=== PATIENT | female | born 1985 | race Two or more races ===

== ENCOUNTER → 2025-07-05 | Outpatient (CLI) | payer MEDICAID, SELFPAY ==
--- NOTE | 2025-07-05 10:45 | XR_ITS ---
Examination: Venous duplex lower extremity sonogram, bilateral. Date and time of exam: July 05, 2025 1018 hours INDICATIONS: Bilateral lower legs falling and pain beginning 3 months ago Technique: Multiple sonographic images of the deep venous system have been obtained. B-mode/2-D grayscale imaging of vascular structures and Doppler spectral analysis (waveforms) and color performed Both legs are examined. Findings: Deep venous systems do not demonstrate abnormal echogenicity. All visualized deep veins exhibit compressibility. All visualized deep veins exhibit augmentation. Impression: Negative for deep vein thrombosis
== END | disposition home or self-care (01) ==
LOC: CDIM 09:52
PROVIDERS: Referring Provider Registered Nurse Community Health; Visit Provider Registered Nurse Community Health
DX: R60.0 Localized edema (principal); M79.606 Pain in leg, unspecified
CPT/HCPCS: 93970

== ENCOUNTER → 2025-08-19 | Outpatient (CLI) | payer MEDICAID, SELFPAY ==
--- NOTE | 2025-08-19 15:40 | XR_ITS ---
Examination: Retroperitoneal ultrasound, complete Technique: Multiple high resolution grayscale images of the retroperitoneum obtained, including kidneys and bladder. Exam date and time: 08/19/2025 at 3:46 p.m. Indication: Right flank pain for 5 months Comparison: CT abdomen pelvis 06/30/2018 and limited abdominal ultrasound 06/29/2018. FINDINGS: The right kidney measures 11.2 x 5.4 x 5.0 cm in size with cortical thickness of 2.1 cm. The left kidney measures 10.5 x 5.2 x 4.7 cm in size with cortical thickness of 1.8 cm. Mildly lobulated bilateral renal cortical contour is likely developmental correlates with prior CT. Bilateral renal cortical echotexture is normal. No evidence for solid renal mass, calculi, hydronephrosis, or perinephric fluid collection on either side. The urinary bladder is normal in appearance without significant focal or diffuse mural thickening. No bladder calculi are seen. Color Doppler demonstrates intact bilateral ureteral jets. Prevoid bladder volume is 446 mL and post void bladder volume is 13 mL. IMPRESSION: Normal sonographic appearance of the kidneys. No evidence for calculi, hydronephrosis or solid masses. Small post void residual volume of 13 mL. Otherwise, normal appearing urinary bladder.
--- NOTE | 2025-08-19 15:45 | XR_ITS ---
Examination: Arterial duplex lower extremity study. Date and time of exam: August 19, 2025, 1559 hours INDICATIONS: Bilateral leg pain beginning 3 months ago. Findings: Duplex sonographic imaging of the lower extremity arteries using B-mode/Jang scale imaging and Doppler spectral analysis and color flow. Ankle brachial indices have been recorded. Right common femoral artery demonstrates triphasic flow. Right superficial femoral artery demonstrates triphasic flow. Right popliteal artery demonstrates triphasic flow. Right posterior tibial artery demonstrated triphasic flow. Right ankle/brachial index is 1.1. Left common femoral artery demonstrates triphasic flow. Left superficial femoral artery demonstrates triphasic flow. Left popliteal artery demonstrates triphasic flow. Left posterior tibial artery demonstrated triphasic flow. Left ankle/brachial index is 1.1. Impression: Negative study
== END | disposition home or self-care (01) ==
LOC: CDIM 15:24
PROVIDERS: PCP Registered Nurse Community Health; Referring Provider Registered Nurse Community Health; Visit Provider Registered Nurse Community Health
DX: R39.198 Other difficulties with micturition (principal); M79.606 Pain in leg, unspecified
CPT/HCPCS: 76770; 93925

== ENCOUNTER 2025-09-10 08:01 | Emergency (ER) | payer MEDICAID, SELFPAY ==
[2025-09-10 08:13] VITALS: BP 178/140; BP 182/133; PULSE 88; RESP 18; TEMP 37; O2SAT 97; BMI 41.5
--- NOTE | 2025-09-10 08:19 | XR_ITS ---
Examination: CT brain head without contrast. 2-D sagittal coronal reconstructions Date and time of exam: September 10, 2025, 0836 hours INDICATIONS: Patient fell yesterday with injury to the head, head pain CTDI: vol (mGy): 51.1 DLP: (mGycm): 1010 Technique: Multiple CT axial sections of the brain have been obtained, 5 mm slice thickness. Contrast has not been administered. 2-D sagittal, coronal reconstructions have been obtained Low dose protocols were performed. One or more of the following dose reduction techniques were used; automated exposure control, adjustment of the mA and/or KV according to patient size, use of iterative reconstruction technique. Findings: No significant ventricular enlargement. Intra-axial or extra-axial hemorrhage density is not seen. No mass effect or midline shift Basal cisterns are not remarkable. Fourth ventricle is midline. Cranial vault intact. Impression: Negative for acute hemorrhage, mass effect or midline shift
[2025-09-10] MEDS: SODIUM CHLORIDE 0.9% 1000 ML 1,000 ML 999 ML IV (09:01)
[2025-09-10] MEDS: KETOROLAC INJ 30 MG/ML VIAL IVP (09:02)
--- NOTE | 2025-09-10 10:00 | PC.NURSE ---
Patient had fall early this am. Patient not sure of the time, states she hit her head, no loc, not taking any blood thinners.
[2025-09-10 10:05] VITALS: BP 123/84; PULSE 75; RESP 18; TEMP 37; O2SAT 98
--- NOTE | 2025-09-10 10:12 | EDNOTE_ITS ---
ED Headache RME/HPI General Chief Complaint: Headache Stated Complaint: ARIAS since yesterday Time Seen by Provider: 09/10/25 08:15 Arrival date/time: 09/10/25 08:01 Limitations: no limitations RME / HPI Complaint: headache Onset (ago): hour(s) Onset description: sudden Location: diffuse Severity: moderate Quality: throbbing Relieving factors: nothing Context: recent head injury and other (+ETOH) Associated symptoms: nausea and vomiting Treatments prior to arrival: ibuprofen RME / HPI Narrative: 39-year-old female states was drinking last night did not think she drink that much but was very dizzy and not steady on her feet causing her to trip and fall striking her head. Took an ibuprofen but then continued to vomit and started having a worse headache than before. Now feels dizzy headache and with vomiting. No other injuries reported. Related Data Previous Rx's ?Medication ?Instructions ?Recorded hydrocodone 5 mg-acetaminophen 325 1 tab PO [id number] N pain #14 tabs 06/30/18 mg tablet ([place]) ibuprofen 600 mg tablet (IBU) 600 mg PO TID PRN pain # 30 tabs 06/30/18 ondansetron 4 mg disintegrating 4 mg PO Q8H PRN nausea and 04/15/22 tablet vomiting #10 tabs Allergies Allergy/AdvReac Type Severity Reaction Status Date / Time No Known Allergies Allergy Verified 04/15/22 12:29 Review of Systems Review of Systems Systems Reviewed: All systems reviewed, normal except as documented Constitutional Constitutional: Denies fever(s) Neurologic Neurologic: Reports as per HPI ED Exam General Limitations: Present no limitations General appearance: Present alert and in no apparent distress Head Head exam: Present atraumatic Eye Eye exam: Present normal appearance, PERRL and EOMI ENT ENT exam: Present normal exam, normal oropharynx and mucous membranes moist Neck Neck exam: Present normal inspection, full ROM and trachea midline Chest Chest inspection: Present normal inspection and symmetric chest wall rise Respiratory Respiratory exam: Present normal lung sounds bilaterally Cardiovascular Cardiovascular exam: Present regular rate, normal rhythm and normal heart sounds Abdominal Exam Abdominal exam: Present soft and normal bowel sounds Extremities Exam Extremities exam: Present normal inspection and full ROM Back Exam Back exam: Present normal inspection and full ROM Neurological Exam Neurological exam: Present alert, oriented X3 and CN II-XII intact Psychiatric Psychiatric exam: Present normal affect and normal mood Skin Skin exam: Present warm, dry, intact and normal color Course Quality Measures none Orders Category Date Time Status CT head/brain wo con Stat Exams 09/10/25 08:19 Completed ALPRazoLAM [Xanax] Med 09/10/25 08:19 Discontinued 1 mg PO X1 ONE Ketorolac Inj [Toradol Inj] Med 09/10/25 08:19 Discontinued 30 mg IM X1 ONE Ketorolac Inj [Toradol Inj] Med 09/10/25 08:29 Discontinued 30 mg IVP X1 ONE Sodium Chloride 0.9% 1000 ml [Ns] 1,000 ml Med 09/10/25 08:19 Discontinued IV 999 mls/hr Vital Signs Vital signs: Vital Signs Temperature 98.6 F 09/10/25 08:13 Pulse Rate 88 09/10/25 08:13 Respiratory Rate 18 09/10/25 08:13 Blood Pressure 178/140 H 09/10/25 08:13 Pulse Oximetry (%) 97 09/10/25 08:13 Oxygen Delivery Method Room Air 09/10/25 08:13 Headache Patient data External records reviewed:: [facility] previous records Clinical information provided by:: patient Social determinants that could affect healthcare access:: alcohol use Patient has the following chronic illnesses:: none How is presenting disease/condition affected by chronic disease/condition?: no chronic disease Evaluation data The following diagnostics were reviewed and interpreted by me:: radiology exam(s) Lab and/or radiology exams considered but not ordered:: labs considered but will not change course of treatment today Interpretation Summary: negative ct of head Medications / Prescriptions Medications or Prescriptions considered but not ordered:: benzos for home Medication administrations:: Medication Administration History Discontinued Medications Alprazolam (Alprazolam 0.25 Mg Tablet) 1 mg PO X1 ONE Stop: 09/10/25 08:20 Last Admin: 09/10/25 09:01 Dose: 1 mg Documented By: ZACH Sodium Chloride (Ns) 1,000 mls @ 999 mls/hr IV .Q1H1M ONE Stop: 09/10/25 09:19 Last Infusion: 09/10/25 10:12 Dose: Infused Documented By: Admin: 09/10/25 09:01 Dose: 999 mls/hr Documented By: ZACH Ketorolac Tromethamine (Ketorolac Inj 30 Mg/Ml Vial) 30 mg IM X1 ONE Stop: 09/10/25 08:20 Last Admin: 09/10/25 08:29 Dose: Not Given Documented By: ZACH Non-Admin Reason: Duplicate Medication on eMAR Ketorolac Tromethamine (Ketorolac Inj 30 Mg/Ml Vial) 30 mg IVP X1 ONE Stop: 09/10/25 08:30 Last Admin: 09/10/25 09:02 Dose: 30 mg Documented By: ZACH see above Consultations Consultation(s) initiated? (list below): No Diagnosis Differential diagnosis headache: migraine, tension headache, subarachnoid hemorrhage, headache, sinusitis, postconcussion syndrome and other (dehydration from etoh ) Most likely diagnosis given after review of the tests above:: head trauma ETOH abuse Admission Indicated Admission indicated?: not indicated Admission Request Was there a request for admission?: No Disposition Plan Disposition Plan: Discharge Discharge Attestation Discharge Attestation: The patient and all family members were given an opportunity to ask questions and understood the discharge instructions. Discharge instructions specifically effects, indications for sooner follow up or return to the emergency department, and the expected course of current diagnosis. Patient condition: Stable Discharge Plan Plan Patient Disposition: HOME (Self Care) Discharge Disposition comment: f/u with pcp in 2-3days Prescriptions/Referrals Prescriptions/Med Rec: No Action hydrocodone-acetaminophen [[place]] 5-325 mg tablet 1 tab PO [id number] MDD 3 PRN (Reason: pain) Qty: 14 0RF ibuprofen [IBU] 600 mg tablet 600 mg PO TID PRN (Reason: pain) Qty: 30 0RF ondansetron 4 mg tablet,disintegrating 4 mg PO Q8H PRN (Reason: nausea and vomiting) Qty: 10 0RF Referrals: Jessie Lozada, [facility] [Primary Care Provider] - In 1 week Problem List Clinical Impression: Head ache, Head injury due to trauma, ETOH abuse Patient/Caregiver Discharge Instructions Education Materials: ED Head Injury (Adult), ED Alcohol Abuse Print Language: [place] Stand Alone Forms: [employer] Info., Patient Portal Info Letter PA/ADJUNCT PHYSICAL EDUCATION INSTRUCTOR Supervising Physician PA/ADJUNCT PHYSICAL EDUCATION INSTRUCTOR Supervising Physician: Dr. Walker
== END 2025-09-10 10:50 | disposition home or self-care (01) ==
PROVIDERS: Emergency Provider Emergency Medicine; PCP Nurse Practitioner Family
DX: S09.90XA Unspecified injury of head, initial encounter (principal); F10.10 Alcohol abuse, uncomplicated; W19.XXXA Unspecified fall, initial encounter
CPT/HCPCS: 70450; 96361; 96374; 99283; J1885; J7030; A9270

== ENCOUNTER 2025-09-25 11:02 | Emergency (ER) | payer MEDICAID, SELFPAY ==
[2025-09-25 11:03] VITALS: BMI 41.1
[2025-09-25 11:29] VITALS: BP 128/92; PULSE 83; RESP 17; TEMP 37.1; O2SAT 99
--- NOTE | 2025-09-25 12:02 | EDNOTE_ITS ---
<Statement entered by Jocelyn Mercado MD - 09/25/25 17:50> As co-signing physician, I was present and available for consult prn. I concur with the plan and care as documented by the midlevel provider. ED Abdominal Pain RME/HPI General Chief Complaint: Abdominal Pain Stated complaint: RUQ ABD PAIN X4 DAYS Time seen by provider: 09/25/25 11:54 Arrival date/time: 09/25/25 11:02 RME / HPI RME / HPI narrative: 39-year-old female with a past medical history of cholecystectomy 6 years ago presents to the ER complaining right flank pain for the past 4 days associate with nausea. Denies vomiting, diarrhea, fever, shortness of breath urinary symptoms. Patient states that she is currently on her menstrual period. Patient was sent here from the clinic to exclude a kidney stone. Related Data Previous Rx's ?Medication ?Instructions ?Recorded hydrocodone 5 mg-acetaminophen 325 1 tab PO [id number] [place] N pain #14 tabs 06/30/18 mg tablet ([place]) ibuprofen 600 mg tablet (IBU) 600 mg PO TID PRN pain # 30 tabs 06/30/18 ondansetron 4 mg disintegrating 4 mg PO Q8H PRN nausea and 04/15/22 tablet vomiting #10 tabs Allergies Allergy/AdvReac Type Severity Reaction Status Date / Time No Known Allergies Allergy Verified 09/25/25 11:05 Course Quality Measures none Orders Category Date Time Status NPO NOW Care 09/25/25 12:03 Active Diet NPO (NOW) Diet 09/25/25 12:[address] abdomen pelvis wo con Stat Exams 09/25/25 12:03 Completed CBC Stat Lab 09/25/25 12:14 Completed CMP [Comprehensive Metabolic Panel] Stat Lab 09/25/25 12:14 Completed HCG,Qualitative Serum Stat Lab 09/25/25 12:14 Completed Lipase Stat Lab 09/25/25 12:14 Completed Urinalysis Stat Lab 09/25/25 14:50 Completed Urine Culture Stat Lab 09/25/25 14:50 Received Ketorolac Inj [Toradol Inj] Med 09/25/25 12:03 Discontinued 30 mg IM X1 ONE Ondansetron Odt [Zofran Odt] Med 09/25/25 12:03 Discontinued 4 mg PO X1 ONE Vital Signs Vital signs: Vital Signs Temperature 98.7 F 09/25/25 11:29 Pulse Rate 83 09/25/25 11:29 Respiratory Rate 17 09/25/25 11:29 Blood Pressure 128/92 H 09/25/25 11:29 Pulse Oximetry (%) 99 09/25/25 11:29 Oxygen Delivery Method Room Air 09/25/25 11:29 Abdominal Pain MDM MDM Narrative MDM Narrative:: MDM: The patient presents with abdominal pain without definite explanation found on evaluation today. However, there are no signs of peritonitis or other life- threatening or serious etiology. I considered admission; however, given negative work up and imaging, admission is not indicated. Serial abdominal exams were benign throughout the ED stay, and the patient tolerated oral intake without difficulty. The inherent uncertainty with undifferentiated abdominal pain was emphasized, and strict return precautions were provided. The patient has been instructed that this presentation could represent an early acute abdominal process. The plan is for mandatory re-evaluation within 24 hours and immediate return for worsening, persistence, or change in symptoms. The patient may follow up with their primary care provider or return to the ED as appropriate. The patient appears stable for discharge at this time. Patient data External records reviewed:: [facility] previous records Clinical information provided by:: patient Social determinants that could affect healthcare access:: none Patient has the following chronic illnesses:: As noted How is presenting disease/condition affected by chronic disease/condition?: no chronic disease Evaluation data The following diagnostics were reviewed and interpreted by me:: lab results and radiology exam(s) Lab and/or radiology exams considered but not ordered:: Additional Labs and radiology considered, but not ordered as they were not clinically indicated at this time. Interpretation Summary: CBC without severe leukocytosis, anemia, or thrombocytopenia CMP without severe hyperbilirubinemia, transaminitis, acute renal failure or severe electrolyte derangement Lipase without severe elevation CT notes hepatosplenomegaly without acute intra-abdominal or pelvic abnormality UA without infection however there is blood bilirubin and RBCs without bacteria or nitrates Medications / Prescriptions Medications or Prescriptions considered but not ordered:: I ordered medications based on the patient?s clinical needs and assessment, as documented in the chart. For medications not prescribed, they were not indicated for the patient's current condition, and I determined they were unnecessary at this time to avoid potential risks or complications. Medication administrations:: Medication Administration History Discontinued Medications Ketorolac Tromethamine (Ketorolac Inj 30 Mg/Ml Vial) 30 mg IM X1 ONE Stop: 09/25/25 12:04 Last Admin: 09/25/25 12:27 Dose: 30 mg Documented By: Ondansetron HCl (Ondansetron Odt 4 Mg Tabrap) 4 mg PO X1 ONE; Protocol Stop: 09/25/25 12:04 Last Admin: 09/25/25 12:26 Dose: 4 mg Documented By: As noted Consultations Consultation(s) initiated? (list below): No Diagnosis Differential diagnosis abdominal pain: abdominal pain, constipation, diverticulitis and pancreatitis Most likely diagnosis given after review of the tests above:: Abdominal pain of unclear etiology Admission Indicated Admission indicated?: not indicated Explain why admission is indicated or not indicated:: Escalation of care including admission/observation considered but I decided to discharge because based on the overall clinical presentation, and after consideration of the patient's course in the emergency department and plan for outpatient management, I believe that neither further observation nor inpatient care is required at this time. Admission Request Was there a request for admission?: No Disposition Plan Disposition Plan: Discharge Discharge Attestation Discharge Attestation: The patient and all family members were given an opportunity to ask questions and understood the discharge instructions. Discharge instructions specifically effects, indications for sooner follow up or return to the emergency department, and the expected course of current diagnosis. Patient condition: Stable Discharge Plan Plan Patient Disposition: HOME (Self Care) Patient condition on transfer: Stable Prescriptions/Referrals Prescriptions/Med Rec: No Action hydrocodone-acetaminophen [[place]] 5-325 mg tablet 1 tab PO [id number] MDD 3 PRN (Reason: pain) Qty: 14 0RF ibuprofen [IBU] 600 mg tablet 600 mg PO TID PRN (Reason: pain) Qty: 30 0RF ondansetron 4 mg tablet,disintegrating 4 mg PO Q8H PRN (Reason: nausea and vomiting) Qty: 10 0RF Problem List Clinical Impression: Abdominal pain Patient/Caregiver Discharge Instructions Education Materials: ED Abdominal Pain Unkn Cause Fem Additional Instructions: Follow up with your primary medical doctor within 24 hours. Return to the Emergency Room immediately for any new, worsening, continuing symptoms or any concerns at all. Return to the Emergency Room within 24 hours if you are unable to follow up with your primary medical doctor within 24 hours. Print Language: Citizen Of [place] Stand Alone Forms: [employer] Info., Patient Portal Info Letter PA/TANBARK PEELER Supervising Physician PA/TANBARK PEELER Supervising Physician: Dr. Mercado
--- NOTE | 2025-09-25 12:03 | XR_ITS ---
Examination: CT abdomen and pelvis without contrast. Coronal 3-D reconstructions. Sagittal 2-D reconstructions. Date and time of exam: September 25, 2025, 1340 hours COMPARISON: 06/30/2018 INDICATIONS: September 25, 2025, 1340 hours COMPARISON: 06/30/2018 INDICATIONS: Onset periumbilical pain today CTDI: vol (mGy): 14.9 DLP: (mGycm): 958 Technique: Axial images of the abdomen have been obtained, 3 mm slice thickness Intravenous contrast material has not been administered. Low dose protocols were performed. One or more of the following dose reduction techniques were used; automated exposure control, adjustment of the mA and/or KV according to patient size, use of iterative reconstruction technique. Findings: Fatty infiltration throughout the liver Mild hepatosplenomegaly Gallbladder not visualized No pancreatic or adrenal mass No renal or ureteral calculi, no hydronephrosis Aorta normal size Normal appendix No bowel obstruction or diverticulitis No pelvic mass Contracted urinary bladder Mild osteopenia IMPRESSION: Normal appendix No renal or ureteral calculi, no hydronephrosis No bowel obstruction or diverticulitis
[2025-09-25] MEDS: ONDANSETRON ODT 4 MG TABRAP PO (12:26)
[2025-09-25] MEDS: KETOROLAC INJ 30 MG/ML VIAL IM (12:27)
[2025-09-25 12:52] LABS: Basophils # (Auto) 0.0 Thou/mm3 (0.0-0.2); Basophils % (Auto) 1 % (0-2.5); Eosinophils # (Auto) 0.2 Thou/mm3 (0.0-0.5); Eosinophils % (Auto) 2 % (0-10); Hematocrit 41.9 % (36.0-46.0); Hemoglobin 13.9 g/dL (12.0-16.0); Immature Granulocytes Auto 0.04 Thou/mm3 (0.00-0.00); Lymphocytes # (Auto) 2.1 Thou/mm3 (1.0-4.8); Lymphocytes % (Auto) 27 % (10-50); Mean Corpuscular HGB Conc 33.2 g/dl (31.0-37.0); Mean Corpuscular Hemoglobin 28.6 pg (25.0-35.0); Mean Corpuscular Volume 86 fL (80-100); Monocytes # (Auto) 0.8 Thou/mm3 (0.0-0.8); Monocytes % (Auto) 10 % (0-12); Neutrophils # (Auto) 4.6 Thou/mm3 (1.8-7.7); Neutrophils % (Auto) 59 % (37-80); Nucleated Red Blood Cell # 0.00 Thou/mm3 (0.00-0.00); Nucleated Red Blood Cell % 0 /100 WBC (0); Platelet Count 270 Thou/mm3 (140-440); RDW Standard Deviation 42.8 fL (36.4-46.3); Red Blood Count 4.86 Miln/mm3 (4.00-5.20); White Blood Count 7.7 Thou/mm3 (3.6-11.0)
[2025-09-25 13:01] LABS: HCG,Qualitative Serum Negative
[2025-09-25 13:10] LABS: Alanine Aminotransferase < 7 U/L (10-49); Albumin, Serum 4.6 gm/dL (3.5-5.0); Albumin/Globulin Ratio 1.5 (1.2-2.2); Alkaline Phosphatase 81 U/L (46-116); Anion Gap 10 (7-16); Aspartate Amino Transferase 17 U/L (0-34); BUN/Creatinine Ratio 11 Ratio (12-20); Bilirubin,Total 0.8 mg/dL (0.3-1.2); Blood Urea Nitrogen 9 mg/dL (9-23); Calcium 9.4 mg/dL (8.3-10.6); Calcium (Corrected) 9.4 mg/dL (8.5-10.1); Carbon Dioxide 26.2 mMol/L (20.0-31.0); Chloride 104 mMol/L (98-107); Creatinine (Component) 0.8 mg/dL (0.6-1.3); Estimated Creatinine Clearance 117.8 mL/min (>60); Globulin 3.0 gm/dL (2.3-3.5); Glucose 91 mg/dL (74-106); Lipase 33 U/L (12-53); Osmolality,Calculated 278 (275-295); Potassium 4.2 mMol/L (3.4-5.1); Sodium 140 mMol/L (136-145); Total Protein 7.6 gm/dL (5.7-8.2); eGFR > 60 See Note
[2025-09-25 14:57] LABS: Collection Type, Urine Voided
[2025-09-25 15:04] LABS: Bilirubin,Urine 1+ (Negative); Blood,Urine 3+ (Negative); Clarity,Urine Turbid (Clear/Hazy); Color,Urine Yellow (Lt Yel-Yel); Glucose, Urine Negative (Negative); Ketones,Urine Trace (Negative); Leukocyte Esterase,Urine Negative (Negative); Nitrite,Urine Negative (Negative); PH,Urine 5.5 (5.0-7.0); Protein,Urine 1+ (Neg - Trace); RBC,Urine 5 /hpf (0-3); Specific Gravity,Urine 1.036 (1.001-1.035); Squamous Epithelial Cell,Urine 5 /hpf (0-5); Urobilinogen,Urine 3.0 mg/dL (0.0-1.0); WBC,Urine 5 /hpf (0-5)
[2025-09-25 16:59] VITALS: BP 134/100; PULSE 77; RESP 19; TEMP 37.1; O2SAT 100
== END 2025-09-25 17:00 | disposition home or self-care (01) ==
PROVIDERS: Physician Assistant; Emergency Provider Emergency Medicine; PCP Registered Nurse Community Health
DX: R10.11 Right upper quadrant pain (principal)
CPT/HCPCS: 36415; 74176; 80053; 81001; 83690; 84703; 85025; 87086; 96372; 99283; J1885; Q0162